=== PATIENT | female | born 1965 | race Caucasian/White ===

== ENCOUNTER 2018-05-28 22:15 | Emergency (ER) | payer SELFPAY ==
[2018-05-28] MEDS ORDERED: Sodium Chloride 0.9% 1,000 ML IV ONE (23:11)
--- NOTE | 2018-05-28 23:30 | C.PDOC ---
History Of Present Illness 53 year old female with PMHx of diabetes presents to the ED complaining of intermittent vomiting that started one week ago while on a plane from [place]. Reports she vomited the entire flight status post eating the food from the [employer]. Also complains of abdominal discomfort, bilateral leg muscle cramping, and intermittent diarrhea. Notes symptoms are worse today. States she was unable to tolerate PO today. Denies any fever, chills, shortness of breath, chest pain, back pain, urinary symptoms or any other complaints. Denies sick contacts. Time Seen by Provider: 05/28/18 22:59 Chief Complaint (Nursing): Abdominal Pain History Per: Patient History/Exam Limitations: no limitations Onset/Duration Of Symptoms: Days Current Symptoms Are (Timing): Still Present Context: Food Location Of Pain/Discomfort: Diffuse Quality Of Discomfort: "Pain" Associated Symptoms: Nausea, Vomiting, Diarrhea. denies: Fever, Chills, Back Pain, Chest Pain, Urinary Symptoms Last Bowel Movement: Today Past Medical History Reviewed: Historical Data, Nursing Documentation, Vital Signs Vital Signs: Last Vital Signs Temp 98.9 F 05/28/18 22:46 Pulse 87 05/28/18 22:46 Resp 20 05/28/18 22:46 BP 124/80 05/28/18 22:46 Pulse Ox 97 05/28/18 22:46 - Medical History PMH: HTN, Hypercholesterolemia Surgical History: Family History: States: No Known Family Hx - Social History Hx Alcohol Use: No Hx Substance Use: No - Immunization History Hx Tetanus Toxoid Vaccination: No Hx Influenza Vaccination: No Hx Pneumococcal Vaccination: No Review Of Systems Constitutional: Negative for: Fever, Chills Cardiovascular: Negative for: Chest Pain Respiratory: Negative for: Shortness of Breath Gastrointestinal: Positive for: Nausea, Vomiting, Abdominal Pain, Diarrhea Genitourinary: Negative for: Dysuria, Hematuria Musculoskeletal: Positive for: Other (bilateral leg muscle cramping ) Physical Exam - Physical Exam Appears: Non-toxic, Other (uncomfortable appearing ) Skin: Warm, Dry Head: Normacephalic Nose: Normal Oral Mucosa: Dry Neck: Supple Chest: Symmetrical Cardiovascular: Rhythm Regular Respiratory: Normal Breath Sounds, No Rales, No Rhonchi, No Wheezing Gastrointestinal/Abdominal: Bowel Sounds (Normal ), Soft, Tenderness (diffuse ), No Distention, No Guarding, No Rebound, No Other (rigidity ) Neurological/Psych: Oriented x3, Normal Speech Gait: Steady ED Course And Treatment - Laboratory Results Result Diagrams: 05/28/18 23:11 05/28/18 23:40 Lab Interpretation: Abnormal (Urine WBC 144 with 3+leukocyte esterase) O2 Sat by Pulse Oximetry: 97 (RA) Pulse Ox Interpretation: Normal Progress Note: Patient treated with IV fluids, Zofran and Bentyl. Reevaluation Time: 00:32 Reassessment Condition: Improved Medical Decision Making Medical Decision Making: Plan - Bloodwork - Bentyl 20mg IM - Zofran 8mg IVP - UA Disposition Counseled Patient/Family Regarding: Studies Performed, Diagnosis, Need For Followup, Rx Given - Disposition Referrals: [facility] [Outside] Disposition: HOME/ ROUTINE Disposition Time: 00:32 Condition: IMPROVED Prescriptions: Ciprofloxacin [Cipro] 1 tab PO BID #10 tab Ondansetron ODT [Zofran ODT] 4 mg PO QID PRN #10 odt PRN Reason: Nausea/Vomiting Instructions: Urinary Tract Infection, Adult (DC), Diarrhea and Traveler's Diarrhea, Adult (DC) Forms: Pyreos (Namibian) - Clinical Impression Clinical Impression: Nausea, Vomiting, Diarrhea, UTI (urinary tract infection) - Scribe Statement The provider has reviewed the documentation as recorded by the Scribe Venessa Benz All medical record entries made by the Scribe were at my direction and personally dictated by me. I have reviewed the chart and agree that the record accurately reflects my personal performance of the history, physical exam, medical decision making, and the department course for this patient. I have also personally directed, reviewed, and agree with the discharge instructions and disposition.
[2018-05-28 23:44] LABS: BASO # 0.1 K/uL (0.0-0.2); BASO % 0.6 % (0.0-2.0); EOS # 0.2 K/uL (0.0-0.7); EOS % 2.5 % (0.0-4.0); HEMOGLOBIN 12.3 g/dL (11.0-16.0); LYMPH # 1.2 K/uL (1.0-4.3); LYMPH % 12.6 % (20.0-40.0); MEAN CELL VOLUME 80.7 fL (81.0-99.0); MEAN CORPUSCULAR HEMOGLOBIN 26.8 pg (27.0-31.0); MEAN CORPUSCULAR HGB CONC 33.2 g/dL (33.0-37.0); MEAN PLATELET VOLUME 8.5 fL (7.2-11.7); MONO # 0.5 K/uL (0.0-0.8); MONO % 5.7 % (0.0-10.0); NEUT # 7.2 K/uL (1.8-7.0); NEUT % 78.6 % (50.0-75.0); NRBC % 0.1 % (0.0-2.0); RBC 4.59 Mil/uL (3.80-5.20); RED CELL DISTRIBUTION WIDTH 12.7 % (11.5-14.5); WHITE BLOOD COUNT 9.2 K/uL (4.8-10.8)
[2018-05-28 23:58] LABS: ALB/GLOB RATIO 1.3 (1.0-2.1); ALBUMIN 4.2 g/dL (3.5-5.0); ALT/SGPT 19 U/L (9-52); AST/SGOT 25 U/L (14-36); BLOOD UREA NITROGEN 15 mg/dL (7-17); CALCIUM 8.6 mg/dl (8.6-10.4); GFR NON-AFRICAN AMERICAN > 60; LIPASE 157 U/L (23-300)
[2018-05-29 00:16] LABS: SQUAMOUS EPITHIAL 2 /hpf (0-5); URINE BACTERIA RARE (<OCC); URINE BILIRUBIN NEGATIVE (NEGATIVE); URINE BLOOD NEGATIVE (NEGATIVE); URINE CLARITY Hazy (Clear); URINE COLOR Yellow (YELLOW); URINE GLUCOSE (UA) 2+ mg/dL (Normal); URINE LEUKOCYTE ESTERASE 3+ Leu/uL (Negative); URINE PROTEIN NEGATIVE (NEGATIVE); URINE UROBILINOGEN NORMAL mg/dL (0.2-1.0)
[2018-05-29 00:52] VITALS: BP 144/78; PULSE 89; RESP 18; TEMP 98.3; O2SAT 98
== END 2018-05-29 00:51 | disposition home or self-care (01) ==
LOC: C.ER 22:15
DX: R11.2 Nausea with vomiting, unspecified (principal); R19.7 Diarrhea, unspecified; N39.0 Urinary tract infection, site not specified; I10 Essential (primary) hypertension; E78.00 Pure hypercholesterolemia, unspecified
CPT/HCPCS: 80053; 81001; 83690; 85025; 96372; 96374; 99284; J0500; J2405; J7030